=== PATIENT | male | born 1965 | race Caucasian/White ===

== ENCOUNTER 2018-12-19 00:10 | Emergency (ER) | payer OTHER ==
[~2018-12-19] VITALS: Ht 188 cm; Wt 77.1 kg
--- NOTE | 2018-12-19 00:15 | NUR ---
PT [id number] IN CUSTODY COMPLAINING OF CHEST PAIN, 4/10 [place] RADIATING TO THE NECK. +DIZZINESS. RESPIRATIONS EVEN AND UNLABORED. PT AXO4. 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 [employer] AT BEDSIDE.
--- NOTE | 2018-12-19 00:20 | NUR ---
[employer] AT BEDSIDE.
--- NOTE | 2018-12-19 00:20 | NUR ---
EKG AT BEDSIDE.
[2018-12-19] MEDS ORDERED: IV NS 0.9% 1,000 ML BAG IV ONE (00:30)
--- NOTE | 2018-12-19 00:30 | NUR ---
LABS DRAWN. SENT TO LAB.
--- NOTE | 2018-12-19 00:43 | NUR ---
XRAY AT BEDSIDE.
[2018-12-19 00:46] LABS: BASOPHILS # (AUTO) 0.1 /CMM (0.0-0.2); EOSINOPHILS % (AUTO) 2.5 % (0.0-6.0); HEMATOCRIT 40 % (39-51); HEMOGLOBIN 13.1 g/dL (13.5-17.5); LYMPHOCYTES # (AUTO) 1.1 /CMM (0.8-4.8); LYMPHOCYTES % (AUTO) 24.6 % (20.0-44.0); MEAN CORPUSCULAR HGB CONC 33 g/dl (31.0-36.0); MEAN CORPUSCULAR VOLUME 91 fL (80-96); MONOCYTES # (AUTO) 0.6 /CMM (0.1-1.30); MONOCYTES % (AUTO) 13.2 % (2.0-12.0); NEUTROPHILS # (AUTO) 2.7 /CMM (1.8-8.9); NEUTROPHILS % (AUTO) 57.7 % (43.0-81.0); PLATELET COUNT (AUTO) 272 /CMM (150-450); RED BLOOD CELL COUNT(AUTO) 4.32 MIL/uL (4.5-6.0); WHITE BLOOD COUNT (AUTO) 4.6 K/uL (4.3-11.0)
--- NOTE | 2018-12-19 00:50 | NUR ---
URINE SAMPLE OBTAINED. SENT TO LAB.
[2018-12-19 00:55] LABS: CALCIUM, SERUM 8.3 mg/dL (8.5-10.1); CARBON DIOXIDE 29 mmol/L (21-32); CHLORIDE 107 mmol/L (98-107); CREATININE 0.8 mg/dL (0.6-1.3); GLUCOSE 107 mg/dL (74-106); POTASSIUM 5.1 mmol/L (3.5-5.1); SODIUM SERUM 140 mmol/L (136-145); UREA NITROGEN, BLOOD 28 mg/dL (7-18)
[2018-12-19 01:03] LABS: ALANINE AMINOTRANSFERASE 104 U/L (12-78); ALCOHOL, BLOOD < 3 mg/dL (0-0); ALKALINE PHOSPHATASE 137 U/L (46-116); ASPARTATE AMINOTRANSFERASE 121 U/L (15-37); BILIRUBIN,DIRECT 0.2 mg/dL (0.0-0.2); BILIRUBIN,TOTAL 0.4 mg/dL (0.2-1.0); TOTAL PROTEIN, SERUM 7.9 g/dL (6.4-8.2)
[2018-12-19 01:16] LABS: CREATINE KINASE, TOTAL 104 U/L (39-308)
--- NOTE | 2018-12-19 02:30 | NUR ---
PT RESTING IN BED, NAD NOTED. WILL CONTINUE TO MONITOR.
[2018-12-19] MEDS ORDERED: CEPHALEXIN MONOHYDRATE 500 MG CAPSULE PO ONE ×2 (03:30→03:37)
--- NOTE | 2018-12-19 04:06 | NUR ---
Patient given written and verbal discharge instructions. Patient verbalizes understanding of instructions. Patient is ambulatory with steady gait. Refuses offer of [facility] placement. Patient given list of available shelters in surrounding area.
--- NOTE | 2018-12-19 04:06 | NUR ---
Note ilene in EDM - 12/19/18 at 0407 by DWAINE Patient discharged to home in stable condition. Written and verbal after care instructions given. Patient verbalizes understanding of instruction. IV removed. Catheter intact and site benign. Pressure and 4x4 applied to site. No bleeding noted.
[2018-12-19 04:07] VITALS: BP 133/75
--- NOTE | 2018-12-19 04:07 | NUR ---
IV removed. Catheter intact and site benign. Pressure and 4x4 applied to site. No bleeding noted.
== END 2018-12-19 04:08 | disposition home or self-care (01) ==
LOC: ER 00:13
DX: R07.89 Other chest pain (principal); L03.119 Cellulitis of unspecified part of limb; I25.2 Old myocardial infarction; Z86.19 Personal history of other infectious and parasitic diseases; Z88.6 Allergy status to analgesic agent
CPT/HCPCS: 36415; 71045; 80048; 80076; 80305; 80307; 82550; 84484 ×2; 85025; 85730; 93005; 99284; J7030; G0480